=== PATIENT | female | born 1990 | race African-American/Black ===

== ENCOUNTER 2020-01-13 19:29 | Emergency (ER) | payer BC ==
[2020-01-13 20:24] LABS: Absolute Lymphocytes (CBC) 3.1 K/uL (0.7-4.9); Basophils % 0.9 % (0-1.3); Hematocrit 29.3 % (36.0-45.0); MPV 9.7 fL (7.6-11.3)
[2020-01-13 20:25] LABS: BUN Blood Urea Nitrogen 8 mg/dL (7-18); Bicarbonate 24 mmol/L (21-32); Glucose Level 95 mg/dL (74-106); Potassium 3.7 mmol/L (3.5-5.1); Sodium Level 140 mmol/L (136-145)
[2020-01-13 21:27] LABS: Urine Blood 2+ (NEG); Urine Glucose NEGATIVE (NEG); Urine Protein NEGATIVE (NEG); Urine Specific Gravity 1.025 (1.005-1.030)
[2020-01-13 21:31] LABS: Urine Bacteria <20 /HPF (<20); Urine Culture Reflex Order NOT NEEDED; Urine RBC <5 /HPF (NONE SEEN)
--- NOTE | 2020-01-13 21:38 | RAD REPORT ---
EXAM DESCRIPTION: US - Transvaginal OB - 01/13/2020 9:19 pm CLINICAL HISTORY: with vaginal bleeding COMPARISON: None. FINDINGS: The uterus 9 x 4 x 5 centimeters. The endometrial stripe measures 6 millimeters. A gestat ional sac is not seen. There are several uterine fibroids measuring approximately 2 centimeters. Ovaries are normal in size and echotexture.. An adnexal mass is not noted. No significant free fluid IMPRESSION: Nonvisualization of a gestational sac within the endometrium. These findings could represent an early intrauterine in which the gestational sac is not se en. and even an ectopic can also result in this appearance. This all should be cor related clinically and with serial beta HCG levels. Followup endovaginal sonogram in 1 week recommend ed Uterine fibroids
--- NOTE | 2020-01-13 22:05 | EDPHYS ---
Physician Documentation [facility] Name: Korina Freed Age: 29 yrs Sex: Female : 1990 Arrival Date: 01/13/2020 Time: 19:32 Bed 5 Private MD: ED Physician Raad Mathew HPI: 01/13 05:43 This 29 yrs old Black Female presents to ER via Ambulatory with complaints of Vaginal tw4 Bleeding - 6 Wks Preg, Abdominal Cramping. 05:43 The patient presents with vaginal bleeding that is light, spotting. Onset: The tw4 symptoms/episode began/occurred today. Modifying factors: The symptoms are alleviated by nothing, the symptoms are aggravated by nothing. Associated signs and symptoms: Pertinent positives: cramping. Severity of symptoms: At their worst the symptoms were mild, in the emergency department the symptoms are unchanged. 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 - Social history:: Smoking status: Patient denies any tobacco usage or history of. ROS: 01/13 05:43 Positive for vaginal bleeding. tw4 Constitutional: Negative for fever, chills, and weight loss, Eyes: Negative for injury, pain, redness, and discharge, Cardiovascular: Negative for chest pain, palpitations, and edema, Respiratory: Negative for shortness of breath, cough, wheezing, and pleuritic chest pain, Abdomen/GI: Negative for abdominal pain, nausea, vomiting, diarrhea, and constipation, Back: Negative for injury and pain. MS/Extremity: Negative for injury and deformity, Skin: Negative for injury, rash, and discoloration, Neuro: Negative for headache, weakness, numbness, tingling, and seizure. : Positive for vaginal bleeding. Exam: 05:43 Constitutional: This is a well developed, well nourished patient who is awake, alert, tw4 and in no acute distress. Head/Face: Normocephalic, atraumatic. Chest/axilla: Normal chest wall appearance and motion. Nontender with no deformity. No lesions are appreciated. Cardiovascular: Regular rate and rhythm with a normal S1 and S2. No gallops, murmurs, or rubs. Normal PMI, no JVD. No pulse deficits. Respiratory: Lungs have equal breath sounds bilaterally, clear to auscultation and percussion. No rales, rhonchi or wheezes noted. No increased work of breathing, no retractions or nasal flaring. Abdomen/GI: Soft, non-tender, with normal bowel sounds. No distension or tympany. No guarding or rebound. No evidence of tenderness throughout. 05:43 : Pelvic Exam: The exam is refused by the patient/guardian. The risks and consequences are understood by the patient. Vital Signs: 01/12 19:37 BP 127 / 83; Pulse 75; Resp 15 S; Temp 98.6(TE); Pulse Ox 100% on R/A; Weight 81.65 kg ca1 (R); Height 5 ft. 4 in. (162.56 cm) (R); 21:27 BP 120 / 85; Pulse 75; Resp 16 S; Pulse Ox 100% on R/A; jd3 19:37 Body Mass Index 30.90 (81.65 kg, 162.56 cm) ca1 MDM: 19:44 Patient medically screened. tw4 01/13 05:43 Data reviewed: vital signs, nurses notes. Data reviewed: lab test result(s), CBC, tw4 electrolytes, urinalysis, radiologic studies, ultrasound. Data interpreted: Pulse oximetry: Interpretation: normal. Counseling: I had a detailed discussion with the patient and/or guardian regarding: the historical points, exam findings, and any diagnostic results supporting the discharge/admit diagnosis, radiology results. 01/12 19:45 Order name: Abo/rh Typing; Complete Time: 21:00 tw4 01/12 21:01 Interpretation: Within normal limits. tw01/12 19:45 Order name: Basic Metabolic Panel; Complete Time: 21:00 tw4 01/12 21:01 Interpretation: Within normal limits. tw4 01/12 19:45 Order name: CBC with Diff; Complete Time: 21:00 tw4 01/12 21:01 Interpretation: Normal except: HGB 9.4; HCT 29.3; MCV 75.0; MCH 24.1; RDW 17.7. [facility] 01/12 21:17 Order name: Quantitative Hcg; Complete Time: 22:03 [facility] 01/12 22:03 Interpretation: Normal except: HCGQ 769. [facility] 01/12 21:18 Order name: Urine --Ancillary (enter results); Complete Time: 22:03 [facility] 01/12 22:03 Interpretation: Within normal limits: URINE PREG POS. [facility] 01/12 21:18 Order name: Urine Dipstick--Ancillary (enter results); Complete Time: 22:03 [facility] 01/12 22:03 Interpretation: Normal except: UBLD 2+; UESTR 1+. [facility] 01/12 19:45 Order name: IV Saline Lock; Complete Time: 20:05 [facility] 01/12 19:45 Order name: Labs collected and sent; Complete Time: 20:05 [facility] 01/12 19:45 Order name: NPO; Complete Time: 19:51 [facility] 01/12 19:45 Order name: Urine Dipstick-Ancillary (obtain specimen); Complete Time: 21:18 [facility] 01/12 19:45 Order name: Urine Test (obtain specimen); Complete Time: 21:18 [facility] 01/12 20:48 Order name: Transvaginal OB; Complete Time: 22:03 [facility] 01/12 22:03 Interpretation: No acute disease. [facility] 01/12 21:18 Order name: Urine Microscopic Only; Complete Time: 22:03 [facility] 01/12 22:03 Interpretation: Abnormal: SQEPI 5-10. tw4 Administered Medications: No medications were administered Disposition: 01/13/20 22:04 Discharged to Home. Impression: Threatened . - Condition is Stable. - Discharge Instructions: Threatened Miscarriage. - Medication Reconciliation Form, Thank You Letter, Antibiotic Education, Prescription Opioid Use form. - Follow up: Private Physician; When: Upon discharge from the Emergency Department; Reason: Recheck today's complaints, Continuance of care, Re-evaluation by your physician. - Problem is new. - Symptoms have improved. Signatures: Dispatcher [employer] Nadir Smith RN RN jd3 Raad Mathew MD MD tw4 Cathleen Finch RN RN ca1 Corrections: (The following items were deleted from the chart) 01/12 20:48 19:46 OB Complete+US.RAD.HUIZ ordered. EDMS EDMS 22:15 22:04 01/13/2020 22:04 Discharged to Home. Impression: Threatened . Condition jd3 is Stable. Forms are Medication Reconciliation Form, Thank You Letter, Antibiotic Education, Prescription Opioid Use. Follow up: Private Physician; When: Upon discharge from the Emergency Department; Reason: Recheck today's complaints, Continuance of care, Re-evaluation by your physician. Problem is new. Symptoms have improved. tw4
--- NOTE | 2020-01-13 22:05 | ER ---
Nurse's Notes [facility] Name: Korina Freed Age: 29 yrs Sex: Female : 1990 Arrival Date: 01/13/2020 Time: 19:32 Bed 5 Private MD: Diagnosis: Threatened Presentation: 01/12 19:37 Chief complaint: Patient states: for about 6 wks. Abdominal cramping x 3 hours ca1 today. Spotting and light bleeding x 3 days ago. Reports previous history of miscarriage. Coronavirus screen: Proceed with normal triage. Patient denies a cough. Patient denies shortness of breath or difficulty breathing. Patient denies measured and/or subjective temperature greater than 100.4F prior to today's visit. Patient denies travel on a cruise ship or to a country the [facility] currently lists as an affected area. Patient denies contact with known and/or suspected case of COVID-19. Ebola Screen: Patient negative for fever greater than or equal to 101.5 degrees Fahrenheit, and additional compatible Ebola Virus Disease symptoms Patient denies exposure to infectious person. Patient denies travel to an Ebola-affected area in the 21 days before illness onset. No symptoms or risks identified at this time. Initial Sepsis Screen: Does the patient meet any 2 criteria? No. Patient's initial sepsis screen is negative. Does the patient have a suspected source of infection? No. Patient's initial sepsis screen is negative. Risk Assessment: Do you want to hurt yourself or someone else? Patient reports no desire to harm self or others. Onset of symptoms was January 13, 2020. 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 - Social history:: Smoking status: Patient denies any tobacco usage or history of. Screenin:07 Abuse screen: Denies threats or abuse. Nutritional screening: No deficits noted. jd3 Tuberculosis screening: No symptoms or risk factors identified. Fall Risk Ambulatory Aid- None/Bed Rest/Nurse Assist (0 pts). Gait- Normal/Bed Rest/Wheelchair (0 pts) Mental Status- Oriented to own ability (0 pts). Total Motta Fall Scale indicates No Risk (0-24 pts). Assessment: 20:06 General: Appears in no apparent distress. comfortable, Behavior is calm, cooperative, jd3 appropriate for age. Pain: Complains of pain in abdomen Quality of pain is described as crampy. Neuro: Level of Consciousness is awake, alert, obeys commands, Oriented to person, place, time, situation. Cardiovascular: Denies chest pain, Capillary refill < 3 seconds Patient's skin is warm and dry. Respiratory: Airway is patent Respiratory effort is even, unlabored, Respiratory pattern is regular, symmetrical, Denies cough, shortness of breath. GI: Abdomen is non-distended, Abd is soft and non tender X 4 quads. Reports cramping, Patient currently denies diarrhea, nausea, vomiting. : Reports vaginal bleeding that is that last for about 5 min then stopped. EENT: No signs and/or symptoms were reported regarding the EENT system. Derm: Skin is intact, Skin is dry, Skin is normal, Skin temperature is warm. Musculoskeletal: Circulation, motion, and sensation intact. Range of motion: intact in all extremities. 21:18 Reassessment: Patient appears in no apparent distress at this time. No changes from jd3 previously documented assessment. Patient and/or family updated on plan of care and expected duration. Pain level reassessed. Patient is alert, oriented x 3, equal unlabored respirations, skin warm/dry/pink. awaiting results. 22:13 Reassessment: Patient appears in no apparent distress at this time. Patient and/or jd3 family updated on plan of care and expected duration. Pain level reassessed. Patient is alert, oriented x 3, equal unlabored respirations, skin warm/dry/pink. reported understanding of discharge instructions, denies any questions at this time. even and steady gait upon discharge. Vital Signs: 19:37 BP 127 / 83; Pulse 75; Resp 15 S; Temp 98.6(TE); Pulse Ox 100% on R/A; Weight 81.65 kg ca1 (R); Height 5 ft. 4 in. (162.56 cm) (R); 21:27 BP 120 / 85; Pulse 75; Resp 16 S; Pulse Ox 100% on R/A; jd3 19:37 Body Mass Index 30.90 (81.65 kg, 162.56 cm) ca1 ED Course: 19:32 Patient arrived in ED. ds1 19:39 Triage completed. ca1 19:39 Arm band placed on right wrist. ca1 19:44 Raad Mathew MD is Attending Physician. tw4 19:49 Nadir Bolanos, RN is Primary Nurse. jd3 20:05 Inserted saline lock: 20 gauge in right antecubital area, using aseptic technique. jd3 Blood collected. 20:08 Patient has correct armband on for positive identification. Placed in gown. Bed in low jd3 position. Call light in reach. Side rails up X 1. Pulse ox on. NIBP on. 21:19 Transvaginal OB In Process Unspecified. EDMS 21:19 Ultrasound completed. Patient tolerated well. Notified ED Physician megan. sg3 22:15 No provider procedures requiring assistance completed. IV discontinued, intact, jd3 bleeding controlled, No redness/swelling at site. Pressure dressing applied. Administered Medications: No medications were administered Outcome: 22:04 Discharge ordered by . tw4 22:15 Discharged to home ambulatory. jd3 22:15 Condition: stable 22:15 Discharge instructions given to patient, Instructed on discharge instructions, follow up and referral plans. Demonstrated understanding of instructions, follow-up care. 22:15 Patient left the ED. jd3 Signatures: Dispatcher [employer] [facility] Jeni Caceres ds1 Nadir Bolanos, RN RN jd3 Terri Nelson sg3 Raad Mathew MD MD tw4 Cathleen Finch RN RN ca1 Corrections: (The following items were deleted from the chart) 19:39 19:37 Chief complaint: Patient states: Abdominal cramping x 3 hours today. Spotting and ca1 light bleeding x 3 days ago. Reports previous history of miscarriage ca1
[2020-01-13 22:40] VITALS: TEMP 98.6; O2SAT 100
[2020-01-13 22:41] VITALS: BP 120/85
== END 2020-01-13 22:15 | disposition home or self-care (01) ==
LOC: ER 19:29
DX: O20.0 Threatened abortion (principal); Z3A.01 Less than 8 weeks gestation of pregnancy
CPT/HCPCS: 36415; 76817; 80048; 81003; 81015; 81025; 84702; 85025; 86900; 86901; 99284